=== PATIENT | male | born 1945 | race Caucasian/White ===

== ENCOUNTER → 2016-09-21 | Outpatient (CLI) | payer OTHER, MEDICARE ==
[~2016-09-21] VITALS: Ht 165.1 cm; Wt 98.9 kg
[~2016-09-21] MED LIST: AMBIEN10 MG PO; AMOX TR-K CLV1 EAC4 PO; ANTIBIOTIC; ASPIR 8181 M1 PO; B-50 COMPLEX1 EACH PO; CELEXA40 MG PO; CYANOCOBALAM1000 MCG PO; DECADRON4 MG PO; FLOMAX0.4 MG PO; GABAPENTIN300 MG PO; HYDROCODON-ACE1 EAC7 PO; K-DUR20 MEQ PO; LEVETIRACETAM500 MG PO; LEVOTHYROXINE150 MCG PO; METFORMIN HCL500 M1 PO; MOBIC7.5 MG PO; OMEPRAZOLE40 M1 PO; PROSCAR5 MG PO; ZOLPIDEM TARTRA10 MG PO
[2016-09-21 10:21] LABS: HEMATOCRIT 40.5 % (38.0-50.0); MCH 31.7 PG (29.0-34.0); MCHC 34.3 G/DL (30.0-36.0); MCV 92.5 FL (86-99); MEAN PLAT.VOLUME 9.4 uM^3 (9.0-12.4); PLATELET COUNT 225 K/uL (156-360); RBC DIS.WIDTH-CV 13.3 % (11.8-14.6); RBC DIS.WIDTH-SD 45.2 % (39-53); RED BLOOD COUNT 4.38 M/uL (4.00-5.50); WHITE BLOOD COUNT 6.6 K/uL (4.1-10.2)
[2016-09-21 10:26] LABS: PROTHROMBIN TIME 10.8 SEC (10.2-12.9)
[2016-09-21 10:29] LABS: PTT 30.8 SEC (25-37)
== END | disposition home or self-care (01) ==
LOC: OPR 09-20 10:00 → EDSTATUS 10:00 → OPR 10:00
PROVIDERS: Internal Medicine Hematology & Oncology
PROC: 0BJLXZZ Inspection of Left Lung, External Approach (ICD-10-PCS; principal; 2016-09-21)
DX: R91.1 Solitary pulmonary nodule (principal); Z53.09 Procedure and treatment not carried out because of other contraindication; J32.9 Chronic sinusitis, unspecified
CPT/HCPCS: 85027; 85610; 85730

== ENCOUNTER → 2016-10-09 | Outpatient (CLI) | payer OTHER, MEDICARE ==
[~2016-10-09] VITALS: Ht 165.1 cm; Wt 98.9 kg
[2016-10-09 09:24] LABS: POINT-OF-CARE METER ID UU13113694
== END | disposition home or self-care (01) ==
LOC: OPR 09-26 10:00 → EDSTATUS 09:00
PROVIDERS: Internal Medicine Hematology & Oncology
PROC: 0BBP3ZX Excision of Left Pleura, Percutaneous Approach, Diagnostic (ICD-10-PCS; principal; 2016-10-09)
DX: C78.2 Secondary malignant neoplasm of pleura (principal); C34.11 Malignant neoplasm of upper lobe, right bronchus or lung
CPT/HCPCS: 71010; 77012; 82948; 88305; 88341 TC; 88342 TC; J3010

== ENCOUNTER 2017-06-04 13:36 | Emergency (ER) | payer OTHER, MEDICARE ==
[~2017-06-04] VITALS: Ht 165.1 cm; Wt 105.4 kg
[2017-06-04] MEDS ORDERED: PREDNISONE50 MG PO (14:05)
[2017-06-04] MEDS ORDERED: NORCO 5/3251 TABLET PO (14:05)
[2017-06-04 14:31] VITALS: BP 152/97
== END 2017-06-04 14:32 | disposition home or self-care (01) ==
LOC: EME 13:36
DX: M54.16 Radiculopathy, lumbar region (principal); E11.9 Type 2 diabetes mellitus without complications; F41.9 Anxiety disorder, unspecified; F32.9 Major depressive disorder, single episode, unspecified; Z87.891 Personal history of nicotine dependence; Z79.84 Long term (current) use of oral hypoglycemic drugs
CPT/HCPCS: 99281; 99284; J1885; J7512

== ENCOUNTER 2017-08-08 21:55 | Inpatient (IN) | payer OTHER, MEDICARE ==
[~2017-08-08] VITALS: Ht 165.1 cm; Wt 113.5 kg
[~2017-08-08 21:55] MED LIST changes: +NORCO 5/3251 TABLET PO; +PREDNISONE50 MG PO
[2017-08-09] MEDS ORDERED: ASPIR 8181 M1 PO (10:01)
[2017-08-09 10:02] VITALS: BP 196/89
[2017-08-09 10:19] LABS: HEMATOCRIT 43.8 % (38.0-50.0); HEMOGLOBIN 14.3 G/DL (12.5-16.6); MCH 30.3 PG (29.0-34.0); MCHC 32.6 G/DL (30.0-36.0); MCV 92.8 FL (86-99); PLATELET COUNT 247 K/uL (156-360); RBC DIS.WIDTH-CV 13.2 % (11.8-14.6); RED BLOOD COUNT 4.72 M/uL (4.00-5.50); WHITE BLOOD COUNT 8.7 K/uL (4.1-10.2)
[2017-08-09 10:53] LABS: CHLORIDE 101 MEQ/L (99-109); CREATININE 1.2 MG/DL (0.6-1.3); GFR ESTIMATE (CALCULATED) > 59 mL/min/ (58.99-99999); GLUCOSE 200 mg/dL (70-99); POTASSIUM 4.4 MEQ/L (3.7-5.4); SODIUM 140 MEQ/L (136-147); UREA NITROGEN (BUN) 24 mg/dL (9-23)
[2017-08-09 18:47] VITALS: BP 189/92
[2017-08-09 20:15] VITALS: BP 162/79
[2017-08-09 23:38] VITALS: BP 177/82
[2017-08-10] MEDS ORDERED: ENDOCET 5-3251 EACH PO (08:13)
[2017-08-10] MEDS ORDERED: FLEXERIL10 MG PO (08:13)
[2017-08-10 08:42] VITALS: BP 172/84
[2017-08-10 16:10] VITALS: BP 129/61
[2017-08-10 23:22] VITALS: BP 135/72
[2017-08-11 07:51] VITALS: BP 122/67
== END 2017-08-11 17:07 | disposition home health service (06) | DRG 454 ==
LOC: ENRESERV 21:55 → 2SOUTH 08-09 09:00 → EDSTATUS 08-09 16:12 → 2SOUTH 08-09 16:14 → SDC 08-09 17:01 → ENRESERV 08-09 17:31 → 3EAST 08-09 18:07
PROVIDERS: Neurological Surgery
PROC: 0SG30K1 Fusion of Lumbosacral Joint with Nonautologous Tissue Substitute, Posterior Approach, Posterior Column, Open Approach (ICD-10-PCS; principal; 2017-08-09)
PROC: 0SG30AJ Fusion of Lumbosacral Joint with Interbody Fusion Device, Posterior Approach, Anterior Column, Open Approach (ICD-10-PCS; principal; 2017-08-09)
PROC: 0SB40ZZ Excision of Lumbosacral Disc, Open Approach (ICD-10-PCS; principal; 2017-08-09)
DX: M51.27 Other intervertebral disc displacement, lumbosacral region (principal); M84.48XA Pathological fracture, other site, initial encounter for fracture; M53.2X6 Spinal instabilities, lumbar region; E03.9 Hypothyroidism, unspecified; E11.9 Type 2 diabetes mellitus without complications; K21.9 Gastro-esophageal reflux disease without esophagitis; F41.9 Anxiety disorder, unspecified; N40.0 Benign prostatic hyperplasia without lower urinary tract symptoms; E66.01 Morbid (severe) obesity due to excess calories; Z68.41 Body mass index [BMI] 40.0-44.9, adult; Z79.84 Long term (current) use of oral hypoglycemic drugs
CPT/HCPCS: 72100; 76000; 80048; 82948; 85027; 86850; 86900; 86901; C1821; J0690; J1100; J1170; J1885; J2405; J2710; J3010; J3370; J3480; J7643